=== PATIENT | female | born 1950 ===

== ENCOUNTER → 2020-07-31 15:00 | Outpatient (CLI) | payer OTHER | END | disposition home or self-care (01) | LOC: PPH VACUNA 15:00 | PROVIDERS: ATTEND Emergency Medicine Pediatric Emergency Medicine | DX: Z23 Encounter for immunization (principal) ==

== ENCOUNTER 2020-08-21 13:50 | Outpatient (CLI) | payer OTHER | END 2020-08-21 13:55 | disposition home or self-care (01) | LOC: PPH VACUNA 13:50 | PROVIDERS: ATTEND Emergency Medicine Pediatric Emergency Medicine | DX: Z23 Encounter for immunization (principal) ==

== ENCOUNTER 2021-04-16 08:00 | Outpatient (CLI) | payer OTHER | END 2021-04-16 08:30 | disposition home or self-care (01) | LOC: PPH VACUNA 08:00 | PROVIDERS: ATTEND Emergency Medicine Pediatric Emergency Medicine | DX: Z23 Encounter for immunization (principal) ==